=== PATIENT | male | born 1990 | race Caucasian/White ===

== ENCOUNTER 2018-02-02 16:04 | Emergency (ER) | payer SELFPAY ==
[~2018-02-02] VITALS: Ht 175.3 cm; Wt 68.0 kg
[~2018-02-02 16:04] MED LIST: SULF1TAB38 PO
--- OUTSIDE RECORDS SUMMARY | 2018-02-02 16:09 | XMS REPORT ---
Author Author MARIA ALVAREZ Organization [facility] Address [address] [place] [address] Care Team Providers Care Energy Risk Management Analyst Name Role Phone MARIA ALVAREZ Unavailable PROBLEMS Unknown Problems ALLERGIES No Known Allergies ENCOUNTERS Encounter Location Date Diagnosis [facility] [address], [place] [address] Feb, Right-sided chest wall pain R07.89 [facility] [id number], [place] [address] Jan, Acute nasopharyngitis J00 [facility] [id number] [place] [phone] 14 May, 2014 [facility] [id number] [place] [phone] May, [facility] [address], [place] [phone] Feb, [facility] [id number] [place] [phone] Feb, [facility] [address], [place] [address] Aug, IMMUNIZATIONS No Known Immunizations SOCIAL HISTORY Never Assessed REASON FOR VISIT Cold symptoms for four days--Jomar Gonzalez MA PLAN OF CARE Activity Details Follow Up prn Reason: VITAL SIGNS Height 69 in 2017-01-21 Weight 141.4 lbs 2017-01-21 Temperature 98.4 degrees Fahrenheit 2017-01-21 Heart Rate 76 bpm 2017-01-21 Respiratory Rate 20 2017-01-21 BMI 20.88 kg/m2 2017-01-21 Blood pressure systolic 112 mmHg 2017-01-21 Blood pressure diastolic 72 mmHg 2017-01-21 MEDICATIONS Medication Instructions Dosage Frequency Start Date End Date Duration Status Loratadine 10 mg take 1 tablet by Oral route 1 time per day take at hs 23 Aug, 2012 Not-Taking Promethazine-Codeine 6.25-10 MG/5ML Orally every 4 hrs 1-2 tsp as needed 4h Jan, Active Ibuprofen 400 mg take 1 tablet by Oral route every 6 hours as needed for pain Feb, Active HydrOXYzine HCl 25 mg 1 Tablet by Oral route 3 times per day PRN for anxiety Feb, Not-Taking RESULTS No Results PROCEDURES No Known procedures INSTRUCTIONS MEDICATIONS ADMINISTERED No Known Medications
--- OUTSIDE RECORDS SUMMARY | 2018-02-02 16:09 | XMS REPORT ---
Author Author DONTA ARRIAGA Organization [facility] Address [address] [place] [address] Care Team Providers Care Claims Manager Name Role Phone DONTA ARRIAGA Unavailable PROBLEMS Unknown Problems ALLERGIES No Known Allergies ENCOUNTERS Encounter Location Date Diagnosis [facility] [id number] [place] [phone] Feb, Right-sided chest wall pain R07.89 [facility] [id number] [place] [phone] Jan, Acute nasopharyngitis J00 [facility] [id number] [place] [phone] May, [facility] [id number] [place] [phone] May, [facility] [address] [place], [place] [phone] Feb, [facility] [address] [place] [phone] Feb, [facility] [id number] [place] [phone] Aug, IMMUNIZATIONS No Known Immunizations SOCIAL HISTORY Never Assessed REASON FOR VISIT rib pain Pt states he fell yesterday evening on ice and hit his ches, he has been having what he perceives as rib pain on R upper chest since then. BHARAT iMlton PLAN OF CARE Activity Details Follow Up prn Reason: VITAL SIGNS Height 69 in 2017 Weight 144.8 lbs 2017 Temperature 98.6 degrees Fahrenheit 2017 Heart Rate 80 bpm 2017 Respiratory Rate 20 2017 BMI 21.38 kg/m2 2017 Blood pressure systolic 122 mmHg 2017 Blood pressure diastolic 62 mmHg 2017 MEDICATIONS Medication Instructions Dosage Frequency Start Date End Date Duration Status HydrOXYzine HCl 25 mg 1 Tablet by Oral route 3 times per day PRN for anxiety Feb, Not-Taking Promethazine-Codeine 6.25-10 MG/5ML Orally every 4 hrs 1-2 tsp as needed 4h Jan, Not-Taking Loratadine 10 mg take 1 tablet by Oral route 1 time per day take at hs 23 Aug, 2012 Not-Taking Ibuprofen 400 mg take 1 tablet by Oral route every 6 hours as needed for pain Feb, Not-Taking RESULTS Name Result Date Reference Range Xray : Rib Series, Right (IN HOUSE) 2017 PROCEDURES Procedure Date Ordered Result Body Site X-RAY EXAM OF RIBS 2017 INSTRUCTIONS MEDICATIONS ADMINISTERED No Known Medications
--- OUTSIDE RECORDS SUMMARY | 2018-02-02 16:09 | XMS REPORT | Continuity of Care Document ---
Author Author [facility] Address Unknown Phone Unavailable Allergies There is no data. Medications There is no data. Problems Date Dx Coded Attending Type Code Diagnosis Diagnosed By 02/24/2013 MI GUAN APRN 300.00 ANXIETY UNSPEC 02/24/2013 MI GUAN APRN 477.9 RHINITIS Procedures There is no data. Results There is no data. Encounters ACCT No. Visit Date/Time Discharge Status Pt. Type Provider Facility Loc./Unit Complaint [id number] 02/24/2013 09:30:00 02/24/2013 23:59:59 CLS Outpatient MI GUAN APRN [id number] 01/31/2018 14:00:00 ACT Outpatient RENZO HOOKER LAC [facility]
[2018-02-02] MEDS ORDERED: HYDROcodone/APAP 7.5 MG/325 MG (LORTAB, LORCET PLUS) TABLET PO ONE (16:45)
--- NOTE | 2018-02-02 16:48 | ED EENT ---
History of Present Illness General Chief Complaint: Dental Problems/Pain Stated Complaint: DENTAL ABSCESS Nursing Triage Note: PT PRESENTS TO ER WITH COMPLAINT OF DENTAL ABSCESS. STATES HE WAS SEEN SATURDAY AND PUT ON AMOXICILLIN AND REFERRED TO DR FREEMAN. STATES TODAY HE WAS WASHING HIS FACE AND FELT A POP IN HIS JAW. STATES HIS FACE STARTED TO SWELL AFTER. PT STATES HE HAS BEEN RUNNING A FEVER. Source: patient Exam Limitations: no limitations History of Present Illness Date Seen by Provider: Feb 02, 2018 Time Seen by Provider: 16:30 Allergies and Home Medications Allergies Coded Allergies: cephalexin (Verified Allergy, Unknown, 02/02/18) Home Medications Trimethoprim/Sulfamethoxazole 1 Ea Tablet, 1 EA PO BID FOR INFECTION Prescribed by: SEGUNDO COLON on 08/16/10 0049 Patient Home Medication List Home Medication List Reviewed: Yes Past Mezkekn-Rxwrat-Xznxuc Hx Patient Social History Alcohol Use: Denies Use Recreational Drug Use: No Smoking Status: Current Everyday Smoker Type Used: Cigarettes Recent Foreign Travel: No Contact w/Someone Who Travel: No Recent Infectious Disease Expo: No Recent Hopitalizations: No Immunizations Up To Date Tetanus Booster (TDap): Unknown PED Vaccines UTD: Yes Seasonal Allergies Seasonal Allergies: No Past Medical History Surgeries: No Respiratory: No Cardiac: No Neurological: No Genitourinary: No Gastrointestinal: No Musculoskeletal: No Endocrine: No HEENT: No Cancer: No Psychosocial: No Integumentary: No Blood Disorders: No Physical Exam Vital Signs Vital Signs - First Documented 02/02/18 16:24 Temp 99.9 Pulse 75 Resp 20 B/P (MAP) 137/76 (96) Pulse Ox 95 O2 Delivery Room Air Height, Weight, BMI Height: 5'9.00" Weight: 150lbs. oz. 68.163211dy; BMI Method:Stated Progress/Results/Core Measures Results/Orders Lab Results Laboratory Tests Test 02/02/18 17:20 Range/Units White Blood Count 11.3 H 4.3-11.0 10^3/uL Red Blood Count 4.46 4.35-5.85 10^6/uL Hemoglobin 14.3 13.3-17.7 G/DL Hematocrit 40 40-54 % Mean Corpuscular Volume 90 80-99 FL Mean Corpuscular Hemoglobin 32 25-34 PG Mean Corpuscular Hemoglobin Concent 36 32-36 G/DL Red Cell Distribution Width 11.6 10.0-14.5 % Platelet Count 249 130-400 10^3/uL Mean Platelet Volume 9.8 7.4-10.4 FL Neutrophils (%) (Auto) 73 42-75 % Lymphocytes (%) (Auto) 17 12-44 % Monocytes (%) (Auto) 10 0-12 % Eosinophils (%) (Auto) 1 0-10 % Basophils (%) (Auto) 0 0-10 % Neutrophils # (Auto) 8.2 H 1.8-7.8 X 10^3 Lymphocytes # (Auto) 1.9 1.0-4.0 X 10^3 Monocytes # (Auto) 1.1 H 0.0-1.0 X 10^3 Eosinophils # (Auto) 0.1 0.0-0.3 10^3/uL Basophils # (Auto) 0.0 0.0-0.1 10^3/uL Sodium Level 140 135-145 MMOL/L Potassium Level 4.1 3.6-5.0 MMOL/L Chloride Level 107 98-107 MMOL/L Carbon Dioxide Level 22 21-32 MMOL/L Anion Gap 11 5-14 MMOL/L Blood Urea Nitrogen 17 7-18 MG/DL Creatinine 0.97 0.60-1.30 MG/DL Estimat Glomerular Filtration Rate > 60 BUN/Creatinine Ratio 18 Glucose Level 116 H 70-105 MG/DL Calcium Level 9.3 8.5-10.1 MG/DL Corrected Calcium 8.9 8.5-10.1 MG/DL Total Bilirubin 0.9 0.1-1.0 MG/DL Aspartate Amino Transf (AST/SGOT) 18 5-34 U/L Alanine Aminotransferase (ALT/SGPT) 14 0-55 U/L Alkaline Phosphatase 81 40-136 U/L Total Protein 7.2 6.4-8.2 GM/DL Albumin 4.5 3.2-4.5 GM/DL My Orders Orders - BERNOT,TYSON Hydrocodone/Apap 7.5/325 Tab (Lortab 7. (02/02/18 16:45) Comprehensive Metabolic Panel (02/02/18 16:37) Saline Lock/Iv-Start (02/02/18 16:37) Cbc With Automated Diff (02/02/18 16:37) Ct Maxillofacial W (02/02/18 16:37) Iohexol Injection (Omnipaque 350 Mg/Ml 1 (02/02/18 17:30) Contrast Received (Contrast Received) (02/02/18 17:30) Sodium Chloride Flush (Catheter Flush Sy (02/02/18 17:30) Ns (Ivpb) (Sodium Chloride 0.9% Ivpb Bag (02/02/18 17:30) Medications Given in ED Current Medications Medications Dose Ordered Sig/Opal Route Start Time Stop Time Status Last Admin Dose Admin Acetaminophen/ Hydrocodone Bitart 1 ea ONCE ONCE PO 02/02/18 16:45 02/02/18 16:46 DC 02/02/18 17:20 1 EA Iohexol 100 ml ONCE ONCE IV 02/02/18 17:30 02/02/18 17:32 DC 02/02/18 17:37 100 ML Sodium Chloride 10 ml NEEDED PRN IV 02/02/18 17:30 02/02/18 17:37 10 ML Sodium Chloride 100 ml ONCE ONCE IV 02/02/18 17:30 02/02/18 17:32 DC 02/02/18 17:37 80 ML Vital Signs/I&O 02/02/18 16:24 Temp 99.9 Pulse 75 Resp 20 B/P (MAP) 137/76 (96) Pulse Ox 95 O2 Delivery Room Air Blood Pressure Mean: 96 Departure Impression Primary Impression: Abscessed tooth Additional Impression: Facial cellulitis Disposition: 01 HOME, SELF-CARE Condition: Stable/Unchanged Departure-Patient Inst. Decision time for Depature: 18:26 Referrals: [facility] (PCP/Family) Primary Care Physician Patient Instructions: Tooth Abscess (DC) Add. Discharge Instructions: Stop your amoxicillin and start taking the Cleocin as directed. Follow-up with Dr. Freeman's office first thing after the holidays by calling for an appointment time in the morning of 02/05/18. Return back to the emergency room for any worsening symptoms or concerns as needed. All discharge instructions reviewed with patient and/or family. Voiced understanding. Scripts Clindamycin HCl (Cleocin HCl) 300 Mg Capsule 300 MG PO Q6H for 7 Days, #28 CAP Prov: BERNSAUL,TYSON 02/02/18 Hydrocodone Bit/Acetaminophen (Hydrocodone/Acetaminophen 5/325mg Tablet) 1 Tab Tab 1 EACH PO Q4-6HR PRN for PAIN-MODERATE MDD 10, #20 TAB Prov: TYSON GOMEZ 02/02/18 TYSON GOMEZ Feb 02, 2018 16:48
[2018-02-02 17:27] LABS: BASOPHILS % (AUTO) 0 % (0-10); EOSINOPHILS # (AUTO) 0.1 10^3/uL (0.0-0.3); EOSINOPHILS % (AUTO) 1 % (0-10); HEMATOCRIT 40 % (40-54); HEMOGLOBIN 14.3 G/DL (13.3-17.7); LYMPHOCYTES # (AUTO) 1.9 X 10^3 (1.0-4.0); LYMPHOCYTES % (AUTO) 17 % (12-44); MEAN CORPUSCULAR HEMOGLOBIN 32 PG (25-34); MEAN CORPUSCULAR HGB CONC 36 G/DL (32-36); MEAN CORPUSCULAR VOLUME 90 FL (80-99); MEAN PLATELET VOLUME 9.8 FL (7.4-10.4); MONOCYTES # (AUTO) 1.1 X 10^3 (0.0-1.0); MONOCYTES % (AUTO) 10 % (0-12); NEUTROPHILS # (AUTO) 8.2 X 10^3 (1.8-7.8); NEUTROPHILS % (AUTO) 73 % (42-75); PLATELET COUNT 249 10^3/uL (130-400); RED BLOOD COUNT 4.46 10^6/uL (4.35-5.85); RED CELL DISTRIBUTION WIDTH 11.6 % (10.0-14.5); WHITE BLOOD COUNT 11.3 10^3/uL (4.3-11.0)
[2018-02-02] MEDS ORDERED: CATHETER FLUSH 10 ML SYR IV PRN (17:30)
[2018-02-02] MEDS ORDERED: IOHEXOL 350 MG/ML 100 ML (OMNIPAQUE 350) VIAL IV ONE (17:30)
[2018-02-02] MEDS ORDERED: RECEIVED CONTRAST (Hold Metformin) IV SCH (17:30)
[2018-02-02] MEDS ORDERED: NS 100 ML (IVPB) BAG IV ONE (17:30)
[2018-02-02 17:48] LABS: ALANINE AMINOTRANSFERASE 14 U/L (0-55); ALBUMIN 4.5 GM/DL (3.2-4.5); ALKALINE PHOSPHATASE 81 U/L (40-136); BILIRUBIN,TOTAL 0.9 MG/DL (0.1-1.0); BUN/CREATININE RATIO 18; CALCIUM 9.3 MG/DL (8.5-10.1); CARBON DIOXIDE 22 MMOL/L (21-32); CHLORIDE 107 MMOL/L (98-107); CREATININE SERUM 0.97 MG/DL (0.60-1.30); GFR ESTIMATED > 60; GLUCOSE 116 MG/DL (70-105); POTASSIUM 4.1 MMOL/L (3.6-5.0); SODIUM 140 MMOL/L (135-145); TOTAL PROTEIN 7.2 GM/DL (6.4-8.2)
--- NOTE | 2018-02-02 17:57 | Diagnostic Imaging Report ---
PROCEDURE: CT maxillofacial with contrast. TECHNIQUE: After intravenous administration of contrast, axial images were obtained through the face and reformatted into coronal and sagittal planes. INDICATION: Left-sided dental pain COMPARISON: None available. FINDINGS: Mucous retention cyst and mild mucosal thickening noted within the right maxillary sinus. Otherwise, the paranasal sinuses are clear. The lamina papyracea are intact. Zygomatic arches are intact. No temporomandibular joint dislocation. Prominent periapical lucency is associated with the right maxillary first molar. This is associated with cortical breakthrough superiorly into the right maxillary sinus with adjacent mucous retention cyst in density. Impacted tooth identified posterior to the right maxillary incisors. Additional periapical lucency associated with the left mandibular first molar without definite cortical breakthrough. Parapharyngeal fat is symmetric and well maintained. Subcutaneous fat stranding is present, particularly on the left. Thickening of the platysma, particularly on the left. No focal fluid collection. Prominent lymph nodes, particularly within the submental region on the left. The airway is patent. The orbits are unremarkable. Minimally visualized intracranial contents are unremarkable. No acute facial fracture. IMPRESSION: Prominent periapical lucency associated with the left mandibular first molar without cortical breakthrough. No focal fluid collection to suggest abscess. There is, however, significant fat stranding and adenopathy, particularly on the left which is favored to relate to cellulitis. Prominent periapical lucency associated with the right maxillary first molar with associated cortical breakthrough superiorly into the right maxillary sinus. Impacted tooth posterior to the right maxillary incisors. Dictated by: Dictated on workstation # [id number]
[2018-02-02] MEDS ORDERED: ACHD5005 PO (18:30)
[2018-02-02] MEDS ORDERED: CLIN300C3 PO (18:30)
[2018-02-02 18:45] VITALS: BP 137/76
[2018-02-02] MEDS ORDERED: CLINDAMYCIN 150 MG (CLEOCIN) CAP PO ONE (18:45)
== END 2018-02-02 18:45 | disposition home or self-care (01) ==
LOC: EDUNIT# 16:04 → ER 16:04
DX: K04.7 Periapical abscess without sinus (principal); L03.211 Cellulitis of face; F17.210 Nicotine dependence, cigarettes, uncomplicated; Z88.1 Allergy status to other antibiotic agents
CPT/HCPCS: 36415; 70487; 80053; 85025

== ENCOUNTER 2018-02-02 23:31 | Emergency (ER) | payer SELFPAY ==
[~2018-02-02] VITALS: Ht 175.3 cm; Wt 68.0 kg
[~2018-02-02 23:31] MED LIST changes: +ACHD5005 PO; +CLIN300C3 PO
--- OUTSIDE RECORDS SUMMARY | 2018-02-02 23:38 | XMS REPORT | Continuity of Care Document ---
Author Author [facility] Address Unknown Phone Unavailable Allergies There is no data. Medications There is no data. Problems Date Dx Coded Attending Type Code Diagnosis Diagnosed By 02/24/2013 MI GUAN APRN 300.00 ANXIETY UNSPEC 02/24/2013 MI GUAN APRN 477.9 RHINITIS Procedures There is no data. Results There is no data. Encounters ACCT No. Visit Date/Time Discharge Status Pt. Type Provider Facility Loc./Unit Complaint [id number] 02/24/2013 09:30:00 02/24/2013 23:59:59 CLS Outpatient MI GUAN APRN [id number] 01/31/2018 14:00:00 ACT Outpatient R[facility]ZO [facility]OOKER [facility]
[2018-02-03] MEDS ORDERED: cefTRIAXone 1,000 MG/2.86 ml vial (IM ONLY) IM STA (00:53)
[2018-02-03] MEDS ORDERED: LIDOCAINE 2% VISCOUS 15 ML UDC PO ONE (01:00)
--- NOTE | 2018-02-03 01:01 | ED EENT ---
History of Present Illness General Chief Complaint: Oral/Throat Problems Stated Complaint: ABCESS TOOTH; BLISTERS IN MOUTH Nursing Triage Note: AMBULATORY TO ED WITH C/O MOUTH SWELLING/PAIN, BLISTERS TO INSIDE OF MOUTH. WAS HERE EARLIER THIS EVENING AND WORKED UP FOR SAME COMPLAINTS. CANNOT SLEEP, UNCOMFORTABLE. Source: patient, spouse Exam Limitations: no limitations History of Present Illness Date Seen by Provider: Feb 03, 2018 Time Seen by Provider: 00:46 Initial Comments Patient presents to ER by private conveyance with chief complaint that he's having intractable pain and swelling on his left face with some esters inside his left lip and cheek. He was seen earlier this shift around 6:00 in the evening by the nurse practitioner at that time a CT was obtained of his head showing no abscess but there was cortical erosion on the right side of his upper first molar into the maxillary sinus with some fluid. There is no erosion or similar findings on the left side where he is having his current symptoms. He was sent home with a prescription for hydrocodone and a changes antibiotics from amoxicillin to Cleocin. He had not picked him up yet because the pharmacy is not open but he did start a dose of Cleocin given in the ER. He was put on amoxicillin and Saturday, 2-3 days ago by [facility] and told to follow-up with Dr. Joshua. This tooth is been giving him some pain for the past few weeks. The swelling is just in the past day. He has no drainage or discharge. No fevers chills, palpitations weakness nausea vomiting or diarrhea. He's been using Tylenol, ibuprofen and Orajel. His last dose ibuprofen was yesterday morning Allergies and Home Medications Allergies Coded Allergies: cephalexin (Verified Allergy, Unknown, 02/02/18) Home Medications Clindamycin HCl 300 Mg Capsule, 300 MG PO Q6H Prescribed by: TYSON GOMEZ on 02/02/181829 Hydrocodone Bit/Acetaminophen 1 Tab Tab, 1 EACH PO Q4-6HR PRN for PAIN-MODERATE Prescribed by: TYSON GOMEZ on 02/02/181829 Trimethoprim/Sulfamethoxazole 1 Ea Tablet, 1 EA PO BID FOR INFECTION Prescribed by: SEGUNDO COLON on 08/16/10 0049 Patient Home Medication List Home Medication List Reviewed: Yes Review of Systems Review of Systems Constitutional: No chills, No diaphoresis, No fever, No malaise Eyes: Denies Blindness, Denies Blurred Vision Ears: Denies Dizziness, Denies Pain Nose: denies clots, denies congestion Mouth: pain, swelling Throat: denies pain, denies swelling Respiratory: No cough, No phlegm Past Dlhdczc-Ydpjhk-Qaojpc Hx Patient Social History Alcohol Use: Denies Use Recreational Drug Use: No Smoking Status: Current Everyday Smoker Type Used: Cigarettes Recent Foreign Travel: No Contact w/Someone Who Travel: No Recent Infectious Disease Expo: No Recent Hopitalizations: No Immunizations Up To Date Tetanus Booster (TDap): Unknown PED Vaccines UTD: Yes Seasonal Allergies Seasonal Allergies: No Past Medical History Surgeries: No Respiratory: No Cardiac: No Neurological: No Genitourinary: No Gastrointestinal: No Musculoskeletal: No Endocrine: No HEENT: No Cancer: No Psychosocial: No Integumentary: No Blood Disorders: No Physical Exam Vital Signs Vital Signs - First Documented 02/03/18 00:15 Temp 99.5 Pulse 84 Resp 17 B/P (MAP) 143/95 (111) Height, Weight, BMI Height: 5'9.00" Weight: 150lbs. oz. 68.120844ke; BMI Method:Stated General Appearance: WD/WN, mild distress Eyes: bilateral eye normal inspection, bilateral eye PERRL, bilateral eye EOMI Ears: bilateral ear auricle normal, bilateral ear canal normal, bilateral ear TM normal Nose: normal inspection; No active bleeding, No discharge Mouth/Throat: other (there are some flat 1 cm x 2 cm bullae on the inside of the left lip. There is some tenderness and swelling of the gingiva and some obvious dental caries on the left and right molars upper and lower. Most of the swelling of the face is on the left side and tenderness as well. No erythema discharge or area of fluctuance or palpable abscess.) Neck: non-tender, full range of motion, supple, normal inspection Cardiovascular: normal peripheral pulses, regular rate, rhythm Respiratory: no respiratory distress, no accessory muscle use Neurologic/Psychiatric: alert, normal mood/affect Progress/Results/Core Measures Results/Orders My Orders Orders - VANNA PAREDES Ceftriaxone For Im Use (Rocephin For Im (02/03/18 00:53) Lidocaine 2% Viscous 15 Ml (Xylocaine Vi (02/03/18 01:00) Ketorolac Injection (Toradol Injection) (02/03/18 01:15) Ceftriaxone For Iv Use (Rocephin For I (02/03/18 01:04) Lidocaine 1% Inj 20 Ml (Xylocaine 1% Inj (02/03/18 01:04) Benzocaine Extension Tube (Hurricaine Ex (02/03/18 01:10) Medications Given in ED Current Medications Medications Dose Ordered Sig/Opal Route Start Time Stop Time Status Last Admin Dose Admin Benzocaine 1 ea STK-MED ONCE .ROUTE 02/03/18 01:10 02/03/18 01:13 DC 02/03/18 01:16 1 EA Ceftriaxone Sodium 1,000 mg STK-MED ONCE .ROUTE 02/03/18 01:04 02/03/18 01:07 DC 02/03/18 01:15 1,000 MG Ketorolac Tromethamine 30 mg ONCE ONCE IM 02/03/18 01:15 02/03/18 01:16 DC 02/03/18 01:16 30 MG Lidocaine HCl 15 ml ONCE ONCE PO 02/03/18 01:00 02/03/18 01:01 DC 02/03/18 01:15 15 ML Lidocaine HCl 20 ml STK-MED ONCE .ROUTE 02/03/18 01:04 02/03/18 01:07 DC 02/03/18 01:16 2.1 ML Vital Signs/I&O 02/03/18 00:15 Temp 99.5 Pulse 84 Resp 17 B/P (MAP) 143/95 (111) Blood Pressure Mean: 111 Progress Progress Note : Time: 01:45 Progress Note Reviewed the note and workup including labs and CT from earlier this shift. There was some erosion the maxillary sinus on the right side but doesn't I this causing his symptoms today. We'll give him a shot of Rocephin. His stated allergy to cephalexin was that he had a rash when he was a child. This seems to be more of either an adverse reaction or something more related to the infection than anything to do with an allergy to cephalexin. He has tolerated the Rocephin for 30 minutes with no symptoms. Swelling in his face does seem to be more cellulitic. Let him continue the Cleocin cc already got it and follow up with Dr. Joshua. The bullae may be from the swelling of the cellulitis. He's also been taking a lot of herbals and over the counters and they can also cause some irritation of the oral mucosal lining. We've encouraged him to use the viscous lidocaine since that has tremendously helped his pain. The Toradol shot also helped his pain so we'll encourage him to use ibuprofen as well as Tylenol and heat. Salt water gargles can also be useful. He already has an appointment with Dr. Joshua set up for March 16. We've given him strict return precautions. Departure Impression Primary Impression: Abscessed tooth Additional Impression: Facial cellulitis Disposition: HOME, SELF-CARE Condition: Improved Departure-Patient Inst. Decision time for Depature: 01:47 Referrals: [facility] (PCP/Family) Primary Care Physician Patient Instructions: Cellulitis (Skin Infection), Adult (DC) Add. Discharge Instructions: Use your Cleocin as prescribed. Apply a pea sized amount of viscous lidocaine to some gauze impacted against the gums and teeth that hurt every 4 hours as needed to control your symptoms. Use of her Profen 800 mg every 8 hours as needed for pain. Tylenol 1000 g every 8 hours as needed for pain. Last case if you need something to help with the pains he can function you can use the already prescribed narcotics from her earlier visit. Use heat, Orajel, saltwater gargles, distraction. This continue the use of your other emdg-nof-sajjzsx remedies. Keep your follow-up appointment with Dr. Joshua. If you have swelling in your throat and you cannot breathe or swallow fluids then you should immediately return to the nearest ER. All discharge instructions reviewed with patient and/or family. Voiced understanding. Work/School Note: Work Release Form Date Seen in the Emergency Department: Feb 03, 2018 Return to Work: Feb 05, 2018 Restrictions: No Restrictions VANNA PAREDES Feb 03, 2018 01:00
[2018-02-03] MEDS ORDERED: cefTRIAXone 1 GM/10 ML for IV (ROCEPHIN) ONE (01:04)
[2018-02-03] MEDS ORDERED: LIDOCAINE 1% INJ 20 ML 20 ML VIAL ONE (01:04)
[2018-02-03] MEDS ORDERED: HURRICAINE EXT TUBE (BENZOCAINE) ONE (01:10)
[2018-02-03] MEDS ORDERED: KETOROLAC 30 MG/ML VIAL IM ONE (01:15)
[2018-02-03 02:00] VITALS: BP 143/95
== END 2018-02-03 02:01 | disposition home or self-care (01) ==
LOC: EDUNIT# 23:31 → ER 23:35
DX: K04.7 Periapical abscess without sinus (principal); L03.211 Cellulitis of face; F17.210 Nicotine dependence, cigarettes, uncomplicated; Z88.1 Allergy status to other antibiotic agents
CPT/HCPCS: 99284

== ENCOUNTER 2020-08-01 07:15 | Emergency (ER) | payer SELFPAY ==
[~2020-08-01] VITALS: Ht 175.2 cm; Wt 76.2 kg
[2020-08-01 07:27] VITALS: BP 123/83
--- NOTE | 2020-08-01 07:31 | ED Back Pain ---
General Stated Complaint: BACK PAIN Source of Information: Patient Exam Limitations: No Limitations History of Present Illness Date Seen by Provider: Aug 01, 2020 Time Seen by Provider: 07:19 Initial Comments Patient to the ER by private conveyance from home with chief complaint for the last 3 or 4 days has been having some back pain starting in his upper neck but that has resolved. He now has feeling of muscle spasms pain when moving deep breathing hiccuping in his right back and flank. No radiation of pain. No numbness tingling weakness. Painful to walk. No inciting injury, trauma or falls. He works as a television repairer lifting heavy things. He has been taking ibuprofen with his last dose being 3 in the morning he took 2 or 3 tablets. Allergies and Home Medications Allergies Coded Allergies: No Known Drug Allergies (Unverified , 08/01/20) Home Medications Clindamycin HCl 300 Mg Capsule, 300 MG PO Q6H Prescribed by: TYSON GOMEZ on 02/02/18 183 Hydrocodone Bit/Acetaminophen 1 Tab Tab, 1 EACH PO Q4-6HR PRN for PAIN-MODERATE Prescribed by: TYSON GOMEZ on 02/02/18 183 Trimethoprim/Sulfamethoxazole 1 Ea Tablet, 1 EA PO BID FOR INFECTION Prescribed by: SEGUNDO COLON on 08/16/10 0049 Patient Home Medication List Home Medication List Reviewed: Yes Review of Systems Constitutional: No chills, No diaphoresis, No fever EENTM: No hearing loss, No ear pain Respiratory: No cough, No phlegm Cardiovascular: No chest pain, No edema Gastrointestinal: No abdominal pain, No nausea Genitourinary: No discharge, No dysuria Musculoskeletal: see HPI, back pain, muscle stiffness, neck pain All Other Systems Reviewed Negative Unless Noted: Yes Past Wufxdmk-Ixqezk-Kiivfo Hx Patient Social History Alcohol Use: Denies Use Smoking Status: Current Everyday Smoker Type Used: Cigarettes Recent Hopitalizations: No Immunizations Up To Date Tetanus Booster (TDap): Unknown PED Vaccines UTD: Yes Seasonal Allergies Seasonal Allergies: No Past Medical History Surgeries: No Respiratory: No Cardiac: No Neurological: No Genitourinary: No Gastrointestinal: No Musculoskeletal: No Endocrine: No HEENT: No Cancer: No Psychosocial: No Integumentary: No Blood Disorders: No Physical Exam Vital Signs Vital Signs - First Documented 08/01/20 07:27 Temp 36.5 Pulse 68 Resp 20 B/P (MAP) 123/83 (96) Pulse Ox 98 O2 Delivery Room Air Capillary Refill : Height, Weight, BMI Height: 5'9.00" Weight: 150lbs. oz. [id number]; BMI Method:Stated General Appearance: No Apparent Distress, WD/WN HEENT: PERRL/EOMI, Pharynx Normal, Moist Mucous Membranes Neck: Full Range of Motion, Normal Inspection, Non Tender, Supple Cardiovascular: Regular Rate, Rhythm, No Edema, Normal Peripheral Pulses Respiratory: Lungs Clear, Normal Breath Sounds, No Accessory Muscle Use, No Respiratory Distress Peripheral Pulses: 2+ Dorsalis Pedis (R), 2+ Left Dors-Pedis (L) Extremity: Normal Capillary Refill, Normal Inspection, Normal Range of Motion, Non Tender, No Pedal Edema Neurologic/Psychiatric: Alert, Oriented x3, No Motor/Sensory Deficits (Se nsation intact bilateral lower extremities. Motor strength 5 out of 5 bilateral lower extremities) Skin: Normal Color, Warm/Dry Progress/Results/Core Measures Results/Orders Lab Results Laboratory Tests Test 08/01/20 07:27 Range/Units Urine Color YELLOW Urine Clarity CLEAR Urine pH 7.0 5-9 Urine Specific [place] 1.015 L 1.016-1.022 Urine Protein NEGATIVE NEGATIVE Urine Glucose (UA) NEGATIVE NEGATIVE Urine Ketones NEGATIVE NEGATIVE Urine Nitrite NEGATIVE NEGATIVE Urine Bilirubin NEGATIVE NEGATIVE Urine Urobilinogen 0.2 < = 1.0 MG/DL Urine Leukocyte Esterase NEGATIVE NEGATIVE Urine RBC (Auto) NEGATIVE NEGATIVE Urine RBC NONE /HPF Urine WBC NONE /HPF Urine Squamous Epithelial Cells 0-2 /HPF Urine Crystals NONE /LPF Urine Bacteria NEGATIVE /HPF Urine Casts NONE /LPF Urine Mucus NEGATIVE /LPF Urine Culture Indicated NO My Orders Orders - VANNA PAREDES Ua Culture If Indicated (08/01/20 07:31) Ketorolac Injection (Toradol Injection) (08/01/20 07:45) Medications Given in ED Current Medications Medications Dose Ordered Sig/Opal Route Start Time Stop Time Status Last Admin Dose Admin Ketorolac Tromethamine 60 mg ONCE ONCE IM 08/01/20 07:45 08/01/20 07:46 DC 08/01/20 07:46 60 MG Vital Signs/I&O 08/01/20 07:27 Temp 36.5 Pulse 68 Resp 20 B/P (MAP) 123/83 (96) Pulse Ox 98 O2 Delivery Room Air Progress Progress Note : Time: 07:36 Progress Note While there is a small suspicion for a kidney stone given his right flank and back muscle spasms since it started up in his neck seems more likely this is musculoskeletal in origin. We will give him a dose of Toradol and set him up with muscle relaxants if his urinalysis comes back without significant amounts of hematuria. We will get a CT of his abdomen and pelvis without IV contrast if he has blood in the urine. Departure Impression Primary Impression: Back pain Qualified Codes: M54.9 - Dorsalgia, unspecified Disposition: HOME, SELF-CARE Condition: Stable Departure-Patient Inst. Decision time for Depature: 07:49 Referrals: [facility] [place] (PCP/Family) Primary Care Physician Patient Instructions: Back Muscle Strain (DC) Add. Discharge Instructions: Heating pads are immensely helpful. Topical creams such as icy hot, Biofreeze, Salonpas, Blue emu etc. Tylenol 1000 mg every 8 hours as necessary for pain. Ibuprofen 800 mg every 8 hours as necessary for pain. Massage or a visit to the chiropractor may be beneficial. Lots of rest can be helpful over the next couple days. Do not lift over 40 pounds for the next 2 weeks. Cyclobenzaprine/Flexeril 1 tablet every 8 hours as necessary for muscle spasms in your back. Do not mix this with alcohol nor should you operate heavy machinery or work at height while under the influence of this medication as it can cause unstable balance and/or drowsiness. If you would like to follow-up with physical therapy to help strengthen your [facility] call [phone] for a no cost evaluation. If you are not seeing improvement over the next 1 to 2 weeks then you need to fo llow-up with your primary care doctor for further management. Scripts Cyclobenzaprine HCl (Cyclobenzaprine HCl) 10 Mg Tablet 10 MG PO Q8H PRN for SPASMS, #20 TAB 0 Refills Prov: VANNA PAREDES Joseline 08/01/20 Work/School Note: Work Release Form Date Seen in the Emergency Department: Aug 01, 2020 Return to Work: Aug 04, 2020 Restrictions: Need Release from Doctor Other Restrictions Listed Below: Do not lift/push/pull greater than 40 pounds until 08/15/2020. VANNA PAREDES J Aug 01, 2020 07:31
[2020-08-01 07:36] LABS: BILIRUBIN,URINE NEGATIVE (NEGATIVE); CLARITY,URINE CLEAR; COLOR,URINE YELLOW; GLUCOSE, URINE (UA) NEGATIVE (NEGATIVE); KETONES,URINE NEGATIVE (NEGATIVE); LEUKOCYTE ESTERASE ,URINE NEGATIVE (NEGATIVE); NITRITE,URINE NEGATIVE (NEGATIVE); PROTEIN,URINE NEGATIVE (NEGATIVE)
[2020-08-01 07:43] LABS: BACTERIA,URINE NEGATIVE /HPF; SQUAMOUS EPITHELIAL CELL,UR 0-2 /HPF
[2020-08-01] MEDS ORDERED: KETOROLAC 60 MG/2 ML VIAL IM ONE (07:45)
[2020-08-01] MEDS ORDERED: CYCL10TA9 PO (07:54)
== END 2020-08-01 08:00 | disposition home or self-care (01) ==
LOC: EDUNIT# 07:15 → ER 07:18
DX: M54.9 Dorsalgia, unspecified (principal); F17.210 Nicotine dependence, cigarettes, uncomplicated
CPT/HCPCS: 81000; 99284

== ENCOUNTER 2020-08-04 10:52 | Emergency (ER) | payer SELFPAY ==
[~2020-08-04] VITALS: Ht 175.2 cm; Wt 67.1 kg
[~2020-08-04 10:52] MED LIST changes: +CYCL10TA9 PO
[2020-08-04] MEDS ORDERED: KETOROLAC 30 MG/ML VIAL IVP ONE (11:30)
--- NOTE | 2020-08-04 11:31 | ED Abdominal Pain ---
General Chief Complaint: Abdominal/GI Problems Stated Complaint: RLQ PAIN Source of Information: Patient Exam Limitations: No Limitations (JAQUAN EGAN APRN) History of Present Illness Date Seen by Provider: Aug 04, 2020 Time Seen by Provider: 11:29 Initial Comments To ER with right-sided abdominal pain that began yesterday evening. No nausea no vomiting no fever no chills. It was initially in the right flank and believed to be muscular. However, it was worse today, much worse with movement. No food today, coffee this morning. Timing/Duration: 1-2 Days Severity/Quality: Moderate Location: Other (right sided) Radiation: No Radiation Activities at Onset: None Associated Symptoms: Denies Symptoms (JAQUAN EGAN APRN) Allergies and Home Medications Allergies Coded Allergies: No Known Drug Allergies (Unverified , 08/01/20) Home Medications Clindamycin HCl 300 Mg Capsule, 300 MG PO Q6H Prescribed by: TYSON GOMEZ on 02/02/18 1830 Cyclobenzaprine HCl 10 Mg Tablet, 10 MG PO Q8H PRN for SPASMS Prescribed by: VANNA PAREDES on 08/01/20 0754 Hydrocodone Bit/Acetaminophen 1 Tab Tab, 1 EACH PO Q4-6HR PRN for PAIN-MODERATE Prescribed by: TYSON GOMEZ on 02/02/18 1830 Hydrocodone/Acetaminophen 1 Each Tablet, 1 TAB PO Q4H PRN for PAIN-MODERATE (5- 7) Prescribed by: JAQUAN EGAN on 08/04/20 1245 Naproxen 500 Mg Tablet, 500 MG PO BID PRN for PAIN-MILD (1-4) Prescribed by: JAQUAN EGAN on 08/04/20 1241 Trimethoprim/Sulfamethoxazole 1 Ea Tablet, 1 EA PO BID FOR INFECTION Prescribed by: SEGUNDO COLON on 08/16/10 0049 Patient Home Medication List Home Medication List Reviewed: Yes (JAQUAN EGAN APRN) Review of Systems Review of Systems Constitutional: see HPI EENTM: No Symptoms Reported Respiratory: No Symptoms Reported Cardiovascular: No Symptoms Reported Gastrointestinal: No Symptoms Reported Genitourinary: No Symptoms Reported Musculoskeletal: no symptoms reported Skin: no symptoms reported Psychiatric/Neurological: No Symptoms Reported Endocrine: No Symptoms Reported Hematologic/Lymphatic: No Symptoms Reported (JAQUAN EGAN APRN) Past Fexkwfe-Tsxzoh-Lnktma Hx Patient Social History Type Used: Cigarettes Recent Hopitalizations: No (JAQUAN EGAN APRN) Immunizations Up To Date Tetanus Booster (TDap): Unknown PED Vaccines UTD: Yes (JAQUAN EGAN APRN) Seasonal Allergies Seasonal Allergies: No (JAQUAN EGAN APRN) Past Medical History Surgeries: No Respiratory: No Cardiac: No Neurological: No Genitourinary: No Gastrointestinal: No Musculoskeletal: No Endocrine: No HEENT: No Cancer: No Psychosocial: No Integumentary: No Blood Disorders: No (JAQUAN EGAN APRN) Physical Exam Vital Signs Vital Signs - First Documented 08/04/20 11:05 Temp 35.6 Pulse 76 Resp 18 B/P (MAP) 116/76 (89) Pulse Ox 98 O2 Delivery Room Air (AMANDA VALE MD) Vital Signs Capillary Refill : (JAQUAN EGAN APRN) Height/Weight/BMI Height: 5'9.00" Weight: 150lbs. oz. 68.165419wj; 24.00 BMI Method:Stated General Appearance: WD/WN, no apparent distress Neck: non-tender, full range of motion Respiratory: no respiratory distress, no accessory muscle use Cardiovascular: regular rate, rhythm Gastrointestinal: normal bowel sounds, soft, tenderness Neurologic/Psychiatric: alert, normal mood/affect, oriented x 3 Skin: normal color, warm/dry (JAQUAN EGAN APRN) Progress/Results/Core Measures Results/Orders Lab Results Laboratory Tests Test 08/04/20 11:20 08/04/20 11:24 08/04/20 11:25 Range/Units Urine Color YELLOW Urine Clarity CLEAR Urine pH 6.0 5-9 Urine Specific [place] 1.020 1.016-1.022 Urine Protein NEGATIVE NEGATIVE Urine Glucose (UA) NEGATIVE NEGATIVE Urine Ketones NEGATIVE NEGATIVE Urine Nitrite NEGATIVE NEGATIVE Urine Bilirubin NEGATIVE NEGATIVE Urine Urobilinogen 0.2 < = 1.0 MG/DL Urine Leukocyte Esterase NEGATIVE NEGATIVE Urine RBC (Auto) NEGATIVE NEGATIVE Urine RBC NONE /HPF Urine WBC NONE /HPF Urine Squamous Epithelial Cells RARE /HPF Urine Crystals NONE /LPF Urine Bacteria NEGATIVE /HPF Urine Casts NONE /LPF Urine Mucus SMALL H /LPF Urine Culture Indicated NO C-Reactive Protein High Sensitivity 0.08 0.00-0.50 MG/DL White Blood Count 6.0 4.3-11.0 10^3/uL Red Blood Count 4.81 4.30-5.52 10^6/uL Hemoglobin 15.5 13.3-17.7 g/dL Hematocrit 44 40-54 % Mean Corpuscular Volume 92 80-99 fL Mean Corpuscular Hemoglobin 32 25-34 pg Mean Corpuscular Hemoglobin Concent 35 32-36 g/dL Red Cell Distribution Width 10.9 10.0-14.5 % Platelet Count 222 130-400 10^3/uL Mean Platelet Volume 9.7 9.0-12.2 fL Immature Granulocyte % (Auto) 0 % Neutrophils (%) (Auto) 54 42-75 % Lymphocytes (%) (Auto) 36 12-44 % Monocytes (%) (Auto) 7 0-12 % Eosinophils (%) (Auto) 2 0-10 % Basophils (%) (Auto) 1 0-10 % Neutrophils # (Auto) 3.3 1.8-7.8 10^3/uL Lymphocytes # (Auto) 2.1 1.0-4.0 10^3/uL Monocytes # (Auto) 0.4 0.0-1.0 10^3/uL Eosinophils # (Auto) 0.1 0.0-0.3 10^3/uL Basophils # (Auto) 0.0 0.0-0.1 10^3/uL Immature Granulocyte # (Auto) 0.0 0.0-0.1 10^3/uL Sodium Level 140 135-145 MMOL/L Potassium Level 4.5 3.6-5.0 MMOL/L Chloride Level 103 98-107 MMOL/L Carbon Dioxide Level 26 21-32 MMOL/L Anion Gap 11 5-14 MMOL/L Blood Urea Nitrogen 12 7-18 MG/DL Creatinine 1.03 0.60-1.30 MG/DL Estimat Glomerular Filtration Rate > 60 BUN/Creatinine Ratio 12 Glucose Level 87 70-105 MG/DL Calcium Level 9.3 8.5-10.1 MG/DL Corrected Calcium 8.5-10.1 MG/DL Total Bilirubin 1.3 H 0.1-1.0 MG/DL Aspartate Amino Transf (AST/SGOT) 18 5-34 U/L Alanine Aminotransferase (ALT/SGPT) 13 0-55 U/L Alkaline Phosphatase 67 40-136 U/L Total Protein 7.3 6.4-8.2 GM/DL Albumin 4.6 H 3.2-4.5 GM/DL (AMANDA VALE MD) Medications Given in ED Current Medications Medications Dose Ordered Sig/Opal Route Start Time Stop Time Status Last Admin Dose Admin Iohexol 100 ml ONCE ONCE IV 08/04/20 12:00 08/04/20 12:01 DC 08/04/20 12:30 84 ML Ketorolac Tromethamine 15 mg ONCE ONCE IVP 08/04/20 11:30 08/04/20 11:31 DC 08/04/20 11:40 15 MG Sodium Chloride 100 ml ONCE ONCE IV 08/04/20 12:00 08/04/20 12:01 DC 08/04/20 12:30 80 ML (AMANDA VALE MD) Vital Signs/I&O 08/04/20 08/04/20 11:05 12:53 Temp 35.6 Pulse 76 78 Resp 18 18 B/P (MAP) 116/76 (89) 109/72 Pulse Ox 98 99 O2 Delivery Room Air (AMANDA VALE MD) Diagnostic Imaging Diagonstic Imaging: CT Comments NAME: [facility]O [facility] REC#: [id number] PT STATUS: REG ER : 1990 PHYSICIAN: JAQUAN EGNA APRN ADMIT DATE: 08/04/20/ER Draft Date of Exam:08/04/20 CT ABD/PELV W (APPENDICITIS) EXAMINATION: CT abdomen and pelvis with intravenous contrast. TECHNIQUE: Multiple contiguous axial images were obtained through the abdomen and pelvis after the uneventful administration of intravenous contrast. All CT scans use one or more of the following dose optimizing techniques: automated exposure control, MA and/or KvP adjustment based on patient size and exam type or iterative reconstruction. HISTORY: Right-sided abdominal pain. COMPARISON: None available. FINDINGS: The heart is unremarkable. The included lung bases are clear. The liver, spleen, pancreas, adrenal glands, and kidneys have a normal appearance. There is no pathologically enlarged mesenteric or retroperitoneal adenopathy. The bowel loops are nondilated. The appendix is visualized in the right lower quadrant and has a normal appearance. There is no free fluid or free air. No acute osseous abnormalities. Ureters and bladder are grossly normal. There is no free air, loculated collection, or adenopathy in the pelvis. IMPRESSION: 1. No acute abnormalities are visualized in the abdomen and pelvis. No evidence of acute appendicitis. No bowel obstruction, free fluid, or free air. Dictated on workstation # [id number] Dict: 08/04/20 1234 Trans: 08/04/20 1237 [id number] [id number] Interpreted by: LANDON LEON DO Electronically signed by: (JAQUAN EGAN APRN) Departure Impression Primary Impression: Abdominal pain Disposition: HOME, SELF-CARE Condition: Stable Departure-Patient Inst. Decision time for Depature: 12:40 (JAQUAN EGAN APRN) Referrals: [facility] [place] (PCP/Family) Primary Care Physician Patient Instructions: No Instuctions Given Add. Discharge Instructions: 1. Return to ER for any concerns. Follow-up with your doctor next week. All discharge instructions reviewed with patient and/or family. Voiced understanding. Scripts Hydrocodone/Acetaminophen (Hydrocodone-Acetamin 5-325 mg) 1 Each Tablet 1 TAB PO Q4H PRN for PAIN-MODERATE (5-7), #5 TAB Prov: JAQUAN EGAN APRN 08/04/20 Naproxen (Naprosyn) 500 Mg Tablet 500 MG PO BID PRN for PAIN-MILD (1-4), #30 TAB 0 Refills Prov: JAQUAN EGAN APRN 08/04/20 Work/School Note: Work Release Form Date Seen in the Emergency Department: Aug 05, 2020 Return to Work: Aug 04, 2020 Attending physician note: I was physically present in the emergency department during the care of this patient as the attending physician on duty, but I was not directly involved in the care or decision-making for this patient. (AMANDA VALE MD) JAQUAN EGAN APRN Aug 04, 2020 11:31 AMANDA VALE MD Aug 04, 2020 19:31
[2020-08-04 11:33] LABS: BASOPHILS % (AUTO) 1 % (0-10); EOSINOPHILS # (AUTO) 0.1 10^3/uL (0.0-0.3); EOSINOPHILS % (AUTO) 2 % (0-10); HEMATOCRIT 44 % (40-54); HEMOGLOBIN 15.5 g/dL (13.3-17.7); LYMPHOCYTES # (AUTO) 2.1 10^3/uL (1.0-4.0); LYMPHOCYTES % (AUTO) 36 % (12-44); MEAN CORPUSCULAR HEMOGLOBIN 32 pg (25-34); MEAN CORPUSCULAR HGB CONC 35 g/dL (32-36); MEAN CORPUSCULAR VOLUME 92 fL (80-99); MEAN PLATELET VOLUME 9.7 fL (9.0-12.2); MONOCYTES # (AUTO) 0.4 10^3/uL (0.0-1.0); MONOCYTES % (AUTO) 7 % (0-12); NEUTROPHILS # (AUTO) 3.3 10^3/uL (1.8-7.8); NEUTROPHILS % (AUTO) 54 % (42-75); PLATELET COUNT 222 10^3/uL (130-400)
[2020-08-04 11:35] LABS: BILIRUBIN,URINE NEGATIVE (NEGATIVE); CLARITY,URINE CLEAR; COLOR,URINE YELLOW; GLUCOSE, URINE (UA) NEGATIVE (NEGATIVE); KETONES,URINE NEGATIVE (NEGATIVE); LEUKOCYTE ESTERASE ,URINE NEGATIVE (NEGATIVE); NITRITE,URINE NEGATIVE (NEGATIVE); PROTEIN,URINE NEGATIVE (NEGATIVE)
[2020-08-04 11:44] LABS: ALBUMIN 4.6 GM/DL (3.2-4.5)
[2020-08-04 11:45] LABS: CHLORIDE 103 MMOL/L (98-107); POTASSIUM 4.5 MMOL/L (3.6-5.0); SODIUM 140 MMOL/L (135-145)
[2020-08-04 11:46] LABS: CALCIUM 9.3 MG/DL (8.5-10.1)
[2020-08-04 11:47] LABS: GLUCOSE 87 MG/DL (70-105); TOTAL PROTEIN 7.3 GM/DL (6.4-8.2)
[2020-08-04 11:48] LABS: CARBON DIOXIDE 26 MMOL/L (21-32)
[2020-08-04 11:49] LABS: BACTERIA,URINE NEGATIVE /HPF; SQUAMOUS EPITHELIAL CELL,UR RARE /HPF
[2020-08-04 11:49] LABS: BILIRUBIN,TOTAL 1.3 MG/DL (0.1-1.0)
[2020-08-04 11:50] LABS: ALKALINE PHOSPHATASE 67 U/L (40-136)
[2020-08-04 11:51] LABS: CREATININE SERUM 1.03 MG/DL (0.60-1.30); GFR ESTIMATED > 60
[2020-08-04 11:52] LABS: BUN/CREATININE RATIO 12
[2020-08-04 11:53] LABS: ALANINE AMINOTRANSFERASE 13 U/L (0-55)
[2020-08-04] MEDS ORDERED: NS 100 ML (IVPB) BAG IV ONE (12:00)
[2020-08-04] MEDS ORDERED: IOHEXOL 350 MG/ML 100 ML (OMNIPAQUE 350) VIAL IV ONE (12:00)
[2020-08-04] MEDS ORDERED: HOLD METFORMIN - RECEIVED CONTRAST 20 ML VIAL IV SCH (12:00)
--- NOTE | 2020-08-04 12:38 | Diagnostic Imaging Report ---
EXAMINATION: CT abdomen and pelvis with intravenous contrast. TECHNIQUE: Multiple contiguous axial images were obtained through the abdomen and pelvis after the uneventful administration of intravenous contrast. All CT scans use one or more of the following dose optimizing techniques: automated exposure control, MA and/or KvP adjustment based on patient size and exam type or iterative reconstruction. HISTORY: Right-sided abdominal pain. COMPARISON: None available. FINDINGS: The heart is unremarkable. The included lung bases are clear. The liver, spleen, pancreas, adrenal glands, and kidneys have a normal appearance. There is no pathologically enlarged mesenteric or retroperitoneal adenopathy. The bowel loops are nondilated. The appendix is visualized in the right lower quadrant and has a normal appearance. There is no free fluid or free air. No acute osseous abnormalities. Ureters and bladder are grossly normal. There is no free air, loculated collection, or adenopathy in the pelvis. IMPRESSION: 1. No acute abnormalities are visualized in the abdomen and pelvis. No evidence of acute appendicitis. No bowel obstruction, free fluid, or free air. Dictated by: Dictated on workstation # [id number]
[2020-08-04] MEDS ORDERED: NAPR-1071 PO (12:41)
[2020-08-04] MEDS ORDERED: ACHD5005 PO (12:44)
[2020-08-04 12:53] VITALS: BP 109/72
== END 2020-08-04 12:52 | disposition home or self-care (01) ==
LOC: EDUNIT# 10:52 → ER 10:53
DX: R10.9 Unspecified abdominal pain (principal)
CPT/HCPCS: 36415; 74177; 80053; 81000; 85025; 86141